=== PATIENT | male | born 1985 | race Caucasian/White ===

== ENCOUNTER 2021-12-12 20:40 | Emergency (ER) | payer OTHER, SELFPAY ==
[2021-12-12 20:41] VITALS: PULSE 62; RESP 15; TEMP 36.3; O2SAT 100; BMI 22.2
--- NOTE | 2021-12-12 20:52 | EX.ED.GENINJ ---
HPI History of Present Illness Chief Complaint: Head Injury Informant: patient Onset/Context/Timing Onset: Today Narrative Narrative: Patient presents with head injury. He was bucked off of a horse landing on the right side of his face and shoulder. He states he was dazed for a moment not remembering people's names but this quickly came back to him. He does not believe he ever lost consciousness. He complains of right-sided facial pain and burning sensation at this time. He has multiple abrasions and lacerations. He denies dental injury. He denies neck pain or shoulder pain at this time. PFSH PFSH Medical History no medical history no medical history Home Medications cephalexin 500 mg capsule 500 mg PO Q12 #14 caps 12/12/21 [Rx Last Taken Unknown] Allergy/AdvReac Type Severity Reaction Status Date / Time No Known Allergies Allergy Verified 12/12/21 20:43 Surgical History no surgical history Social History Smoking Status: Never smoker ROS ROS ED Constitutional Constitutional ED: Denies chills or fever(s) Eyes Eyes: Denies change in vision or discharge from eye(s) ENT ENT ED: Denies discharge from eye(s), rhinorrhea or sore throat Cardiovascular Cardiovascular: Denies chest pain or palpitations Respiratory/Chest Respiratory/Chest: Denies cough or dyspnea Gastrointestinal Gastrointestinal: Denies abdominal pain, diarrhea, nausea or vomiting Genitourinary Genitourinary ED: Denies dysuria Musculoskeletal Musculoskeletal: Reports arthralgias; Denies back pain, extremity pain or neck pain Integumentary Reports Abrasions Neurologic Neurologic: Denies headache(s) or weakness Psychiatric Psychiatric: Denies anxiety or depression Allergic/Immunologic Allergic/Immunologic ED: Denies lip swelling or urticaria EXAM Physical Exam Const Vital Signs: 12/12/21 20:41 12/12/21 20:44 Temperature 97.3 F L Temperature Source Temporal Pulse Rate 62 Respiratory Rate 15 Respiratory Effort Normal Non-Labored Respiratory Pattern Normal Pulse Ox 100 Oxygen Delivery Method Room Air Positive well nourished and well developed General Appearance ED: well developed HEENT Reports normocephalic HEENT Narrative: Multiple facial abrasions and superficial lacerations around the right maxilla. Extraocular movements are fully intact. No eyelid laceration. No dental injury noted. Eyes PERRL and EOMs intact bilaterally Neck supple Neck Narrative: Mild C-spine tenderness to palpation. No step-offs. Chest Wall inspection of chest normal and palpation of chest normal Resp normal respiratory effort and clear to auscultation bilaterally Cardio regular rate and regular rhythm GI normal to inspection, nondistended, normoactive bowel sounds Palpation: soft Extremity Extremity Narrative: Superficial abrasions to the knuckles on his left hand. No bony tenderness with full range of motion. Neuro oriented x3 and no sensory deficits noted Sensorium / Orientation: alert Motor Exam: strength 5/5 throughout Psych mental status grossly normal Skin Skin Narrative: Facial and left hand abrasions as noted above MDM MDM MDM Narrative Medical decision making narrative: Patient sent for CT scan of the head, facial bones, C-spine. Radiography Diagnostic Testing: Clinical Impression(s) from Imaging Studies Brain CT 12/12/21 21:10 IMPRESSION: No acute cranial pathology. Right periorbital and zygomatic arch soft tissue swelling, lacerations and hyperdensities in the subcutaneous soft tissues likely representing foreign debris. Intact calvarium and skull base. Electronically Signed: Marco Reyes DO at 21:40 EDT , Cervical Spine CT 12/12/21 21:10 IMPRESSION: No evidence of acute cervical spinal fracture or spondylolisthesis. Mild to moderate degenerative disc and endplate changes C5-6. No significant central spinal canal or neural foraminal narrowing. Electronically Signed: Marco Reyes DO at 21:43 EDT , Facial/Sinus 12/12/21 21:10 IMPRESSION: Right periorbital and zygomatic arch soft tissue swelling, lacerations and likely foreign debris. No underlying fracture. Electronically Signed: Marco Reyes DO at 21:53 EDT , Treatment and Re-Evaluation Narrative: CT scans reveal superficial lacerations but no acute abnormalities. Patient was given 1 tab of [place] for pain. There is a 2-1/2 cm laceration over the right zygoma that is anesthetized with 2.5 cc of 1% lidocaine. Wound is cleansed and explored. No foreign body material noted. 4 simple interrupted sutures of 5-0 nylon are used to close the wound. The remainder of the facial wounds are all consistent with road rash and superficial abrasions. No foreign bodies are appreciated. Patient will be treated with Keflex to prevent infection. Wound care as discussed. Discharge Plan Triage Chief Complaint: Head Injury ED Provider: Paige iSfuentes Dx/Rx/DC Orders Clinical Impression: Fall, CHI (closed head injury), Face lacerations Instructions: ED Head Injury (Adult), ED Laceration: All Closures Prescriptions: New cephalexin 500 mg capsule 500 mg PO Q12 Qty: 14 0RF Primary Care Provider: Abraham López Referrals: Abraham López DO [Primary Care Provider] - 7 Days for suture removal Disposition Disposition: Home, Self Care
[2021-12-12] MEDS: HYDROcodone Bitartrate/Apap 5/325 Tablet PO (20:57)
--- NOTE | 2021-12-12 21:10 | CT_ITS ---
INDICATION: trauma EXAMINATION: CT BRAIN - CT Head or Brain W/O Contrast Injection TECHNIQUE: Multiple axial images were obtained of the head without intravenous contrast. A radiation dose optimization technique was used for this scan. IV Contrast dosage and agent: None. COMPARISON: CT face obtained in conjunction with this exam. FINDINGS: BRAIN PARENCHYMA: No intra- or extra-axial hemorrhage. No intracranial mass or mass effect. Car/white matter differentiation is maintained and there is no blurring of the basal ganglia. There is no hyperdense vessel. Posterior fossa structures are unremarkable. CSF SPACES: Appropriate for age. No hydrocephalus. Basal cisterns are patent. CALVARIUM, SKULL BASE, PARANASAL SINUSES AND MASTOID AIR CELLS: Clear. No discrete lytic or blastic abnormalities. There is soft tissue swelling overlying the right zygomatic arch and in the right periorbital soft tissues. Right frontal bone region laceration with several small punctate hyperdensities suggesting foreign body debris. Soft tissue laceration overlying the right zygomatic bone with underlying hyperdense debris likely extraneous to the patient. Underlying zygomatic bone is intact. ORBITS: Both globes, extraocular muscles, optic nerves and retrobulbar fat appear unremarkable. ASPECTS Score for Acute Strokes: 10 CT/Brain/Head without Contrast IMPRESSION: No acute cranial pathology. Right periorbital and zygomatic arch soft tissue swelling, lacerations and hyperdensities in the subcutaneous soft tissues likely representing foreign debris. Intact calvarium and skull base. Electronically Signed: Marco Reyes DO at 21:40 EDT ,
--- NOTE | 2021-12-12 21:10 | CT_ITS ---
INDICATION: trauma EXAMINATION: CT FACIAL BONES - CT Maxillofacial W/O Contrast Injection TECHNIQUE: Helically acquired images were obtained of the facial bones. A radiation dose optimization technique was used for this scan. IV Contrast dosage and agent: None. COMPARISON: CT head from the same evening. FINDINGS: SOFT TISSUES: Right periorbital and zygomatic arch soft tissue swelling with associated laceration overlying the right zygomatic arch. Underlying hyperdensities suspicious for external debris. No underlying fracture. Soft tissue swelling and small contusion additional right supraorbital, frontal bone region scalp laceration with several tiny calcific densities suggesting foreign debris. No underlying fracture. VISUALIZED PARANASAL SINUSES: Clear. VISUALIZED MASTOID AIR CELLS: Clear. Note of underdeveloped mastoid air cells on the right. External auditory canals and middle ear structures are normally aerated and normal in appearance. Inner ear structures are within normal limits of the exam. FACIAL BONES, MANDIBLE AND TMJs: No displaced facial bone fracture. No lytic or blastic abnormality. VISUALIZED DENTITION: No periodontal osseous erosion. There is alveolar recession between the right maxillary molars. ORBITAL CONTENTS: Both globes, extraocular muscles and retrobulbar fat appear unremarkable. CT/Sinus/Facial Bone IMPRESSION: Right periorbital and zygomatic arch soft tissue swelling, lacerations and likely foreign debris. No underlying fracture. Electronically Signed: Marco Reyes DO at 21:53 EDT ,
--- NOTE | 2021-12-12 21:10 | CT_ITS ---
INDICATION: trauma EXAMINATION: CT CERVICAL SPINE - CT Spine Cervical W/O Contrast Injection TECHNIQUE: Helically acquired images were obtained of the cervical spine. 2D reformatted images were reviewed. A radiation dose optimization technique was used for this scan. IV Contrast dosage and agent: None. COMPARISON: CT head and face obtained in conjunction with this exam. FINDINGS: VERTEBRAE: No fracture or traumatic subluxation. No discrete lytic or blastic abnormality. Normal alignment. Normal craniocervical junction and cervicothoracic junction. DISCS and SPINAL CANAL: C5-6 degenerative disc and endplate changes and mild uncovertebral joint arthropathy without significant central spinal canal or neural foraminal narrowing. NECK SOFT TISSUES: No prevertebral soft tissue swelling. There is no cervical adenopathy. LUNG APICES: Clear. CT/Spine Cervical without Contras IMPRESSION: No evidence of acute cervical spinal fracture or spondylolisthesis. Mild to moderate degenerative disc and endplate changes C5-6. No significant central spinal canal or neural foraminal narrowing. Electronically Signed: Marco Reyes DO at 21:43 EDT ,
[2021-12-12] MEDS: Cephalexin 250 MG Capsule 500 MG PO (23:35)
[2021-12-12] MEDS: Lidocaine 1% (20 ml mdv) 20 ML Vial INFILT (23:35)
[2021-12-12 23:41] VITALS: BP 134/69; PULSE 69; RESP 18; O2SAT 97
== END 2021-12-12 23:43 | disposition home or self-care (01) ==
PROVIDERS: Emergency Provider Emergency Medicine; PCP Family Medicine; Visit Provider Emergency Medicine
DX: S01.81XA Laceration without foreign body of other part of head, initial encounter (principal); V80.010A Animal-rider injured by fall from or being thrown from horse in noncollision accident, initial encounter; Y93.52 Activity, horseback riding; S60.512A Abrasion of left hand, initial encounter
CPT/HCPCS: 12011; 70450; 70486; 72125; 99285